=== PATIENT | female | born 1955 | race Caucasian/White ===

== ENCOUNTER 2020-04-17 08:37 | Day surgery (SDC) | payer BC ==
[2020-04-17] MEDS ORDERED: Midazolam 1 MG/ML 2 ML SDV IV ONE (08:38)
[2020-04-17] MEDS ORDERED: fentaNYL 100 MCG/2 ML SDV IV ONE (08:38)
[2020-04-17] MEDS ORDERED: Lactated Ringers 1,000 ML IV SCH (09:30)
[2020-04-17] MEDS ORDERED: Sodium Chloride 0.9% 10 ML Syringe FLUSH PRN (09:30)
--- NOTE | 2020-04-18 13:25 | OR ---
DATE OF OPERATION: 04/17/2020 SURGEON: Michelle Miles MD PREOPERATIVE DIAGNOSIS: Visually significant cataract, right eye. POSTOPERATIVE DIAGNOSIS: Visually significant cataract, right eye. PROCEDURES PERFORMED: Phacoemulsification with intraocular lens placement, right eye. ASSISTANTS: None. ANESTHESIA: Local with sedation. COMPLICATIONS: None. BLOOD LOSS: None. IMPLANTS: An Christian ACU0T0 21.5 diopter lens, serial number [id number] implanted. CDE: 3.36. DESCRIPTION OF PROCEDURE: After risks and benefits were reviewed with the patient, consent was obtained in the preoperative area, and the operative eye was marked with a surgical pen. In the preoperative area, a pledget was used to dilate the pupil consisting of a mixture of phenylephrine 10%, cyclopentolate 2%, moxifloxacin 0.5%, and bupivacaine 0.75%. The patient was taken to the operating room, where a time-out was performed, and the patient was placed under monitored anesthesia care. Topical tetracaine was used for anesthesia. The operative eye was prepped and draped for ophthalmic surgery, and the microscope was brought into position and focused. A paracentesis incision was made, followed by injection of preservative-free 1% lidocaine into the anterior chamber, followed by injection of Viscoat into the anterior chamber. A microkeratome blade was used to make a corneal limbal incision temporally. A cystotome was used to make the beginning of the capsulorrhexis, which was carried around 360 degrees in a curvilinear fashion using Utrata forceps. A Lindsay cannula with BSS was used to hydrodissect and hydrodelineate the nucleus. The nucleus was removed in a divide and conquer manner using phacoemulsification. Irrigation and aspiration were used to remove the remaining cortical material. Provisc was used to inflate the capsular bag, and a pre-loaded Christian ACU0T0 21.5 diopter lens, serial number [id number] was injected into the capsular bag. A Sinskey hook was used to position and center the lens. Next, irrigation and aspiration was used to remove any remaining viscoelastic and cortical material from the anterior chamber. BSS on a cannula was used to inflate the anterior chamber and hydrate the wound. The wound was checked and found to be watertight. 1 mg of Moxifloxacin was injected into the anterior chamber. Drapes were removed and the eye was cleaned. A drop of brimonidine 0.15% and a drop of TobraDex was placed. The eye was shielded, and the patient was taken to the recovery room in stable condition. CC: CHARLES Carmichael CC: Neha Rooney OD CC: Michelle Miles MD /[id number]
== END 2020-04-17 11:10 | disposition home or self-care (01) ==
LOC: FB.SDS 08:37
PROVIDERS: ATTEND Ophthalmology
DX: H25.813 Combined forms of age-related cataract, bilateral (principal); H02.831 Dermatochalasis of right upper eyelid; H02.834 Dermatochalasis of left upper eyelid; H35.033 Hypertensive retinopathy, bilateral; H52.223 Regular astigmatism, bilateral; I10 Essential (primary) hypertension; E78.2 Mixed hyperlipidemia; Z88.2 Allergy status to sulfonamides; Z87.891 Personal history of nicotine dependence; F41.9 Anxiety disorder, unspecified; K21.9 Gastro-esophageal reflux disease without esophagitis; F32.9 Major depressive disorder, single episode, unspecified; Z79.899 Other long term (current) drug therapy
CPT/HCPCS: 00142-QZ; J2250; J3010; V2632

== ENCOUNTER 2022-10-07 10:24 | Day surgery (SDC) | payer MEDICARE ==
[2022-10-07] MEDS ORDERED: Sodium Chloride 0.9% 10 ML Syringe IV ONE (10:25)
[2022-10-07] MEDS ORDERED: fentaNYL 100 MCG/2 ML SDV IV ONE (10:25)
[2022-10-07] MEDS ORDERED: Midazolam 1 MG/ML 2 ML SDV IV ONE (10:25)
[2022-10-07] MEDS ORDERED: Sodium Chloride 0.9% 10 ML Syringe FLUSH PRN (10:30)
[2022-10-07] MEDS ORDERED: Lactated Ringers 1,000 ML IV PRN (10:30)
[2022-10-07] MEDS ORDERED: acetaZOLAMIDE 500 MG Cap.ER PO ONE (12:30)
== END 2022-10-07 12:35 | disposition home or self-care (01) ==
LOC: FB.SDS 10:24
PROVIDERS: ATTEND Ophthalmology
DX: H25.812 Combined forms of age-related cataract, left eye (principal); H02.831 Dermatochalasis of right upper eyelid; H02.834 Dermatochalasis of left upper eyelid; H04.123 Dry eye syndrome of bilateral lacrimal glands; I10 Essential (primary) hypertension; K21.9 Gastro-esophageal reflux disease without esophagitis; F41.9 Anxiety disorder, unspecified; F32.A Depression, unspecified; E78.2 Mixed hyperlipidemia; Z79.899 Other long term (current) drug therapy; Z88.2 Allergy status to sulfonamides; Z98.890 Other specified postprocedural states; Z87.891 Personal history of nicotine dependence; Z96.1 Presence of intraocular lens
CPT/HCPCS: 00142; A9270-GY; J2250; J3010; J3490

== ENCOUNTER 2023-05-17 18:46 | Emergency (ER) | payer BC, MEDICARE ==
[2023-05-17 20:00] LABS: BILIRUBIN,URINE NEGATIVE (NEGATIVE); GLUCOSE,URINE NORMAL (NORMAL); KETONES,URINE NEGATIVE (NEGATIVE); LEUKOCYTE ESTERASE,URINE LARGE (NEGATIVE); NITRITE,URINE NEGATIVE (NEGATIVE); OCCULT BLOOD,URINE LARGE (NEGATIVE); PROTEIN,URINE 30 mg/dL (NEGATIVE); UROBILINOGEN,URINE NORMAL (NEGATIVE)
[2023-05-17 20:05] LABS: APPEARANCE,URINE SLIGHTLY CLOUDY (CLEAR); BACTERIA,URINE FEW (NS); SQUAMOUS EPITHELIAL CELLS,UR FEW (NS,R,O); WBC,URINE 30-40 (0-5)
[2023-05-17] MEDS ORDERED: Ciprofloxacin 500 MG Tab PO ONE (20:22)
== END 2023-05-17 20:33 | disposition home or self-care (01) ==
LOC: FB.ED 18:46
DX: N39.0 Urinary tract infection, site not specified (principal); E78.00 Pure hypercholesterolemia, unspecified; I10 Essential (primary) hypertension; K21.9 Gastro-esophageal reflux disease without esophagitis; Z88.2 Allergy status to sulfonamides; Z79.899 Other long term (current) drug therapy
CPT/HCPCS: 81001; 87086; 99283; A9270

== ENCOUNTER 2025-06-05 06:06 | Day surgery (SDC) | payer MEDICARE ==
[2025-06-05] MEDS ORDERED: Propofol 200 MG/20 ML SDV IV ONE (06:07)
[2025-06-05] MEDS ORDERED: Sodium Chloride 0.9% 10 ML Syringe FLUSH PRN (06:15)
[2025-06-05] MEDS: Lactated Ringers 1,000 ML IV SCH (07:12)
== END 2025-06-05 08:38 | disposition home or self-care (01) ==
LOC: FB.SDS 06:06
PROVIDERS: ATTEND Surgery
DX: Z12.11 Encounter for screening for malignant neoplasm of colon (principal); D12.6 Benign neoplasm of colon, unspecified; K57.30 Diverticulosis of large intestine without perforation or abscess without bleeding; R19.5 Other fecal abnormalities; I10 Essential (primary) hypertension; Z88.2 Allergy status to sulfonamides; Z87.891 Personal history of nicotine dependence; Z79.899 Other long term (current) drug therapy
CPT/HCPCS: 00811; 45385; 88305; A9270; J2003; J2704; J7120